=== PATIENT | female | born 1930 | race Caucasian/White ===

== ENCOUNTER → 2017-07-13 | Outpatient (CLI) | payer MEDICARE ==
[~2017-07-13] MED LIST: DOBUTamine 250 MG in DEXTROSE 5% IN WATER 250 ML IV ONE
--- NOTE | 2017-07-13 12:15 | ECHOS ---
STRESS ECHOCARDIOGRAM DATE OF SERVICE: 07/13/2017 INDICATIONS: Left bundle branch block. MEDICATIONS: BASELINE HEART RATE: 97 BASELINE BLOOD PRESSURE: 166/81 MAXIMUM HEART RATE: 126 MAXIMUM BLOOD PRESSURE: 213/92 85% MPHR: 115 100% MPHR: 135 METS: MAXIMUM STAGE REACHED: TOTAL EXERCISE TIME: CLINICAL INFORMATION: An 86-year-old female referred for a dobutamine stress echo. Baseline heart rate 97 beats per minute. Baseline blood pressure 166/81 mmHg. Baseline 12-lead ECG shows sinus rhythm with a left bundle branch block pattern and occasional PVCs. Patient received dobutamine infusion for only up to 20 mcg. Heart rate increased to 126 beats per minute. Peak blood pressure 213/92 mmHg. There was no definite ECG evidence for ischemia. Occasional PVCs were noted. The baseline 2-D echo images showed no wall motion abnormalities, but an overall LV systolic function of 50%. With dobutamine infusion at low dose and at peak dose of 20 mcg, there was no definite wall motion abnormality. There was augmentation of overall LV contractility, but without developing any wall motion abnormalities. At recovery, regional global LV systolic function remained normal. IMPRESSION: 1. No ECG or echocardiographic evidence for ischemia at this low level dobutamine stress test. 2. Baseline hypertension. MMODL / IJN: [id number] /
== END | disposition home or self-care (01) ==
LOC: RADNMMAIN 09:02
PROVIDERS: ATTEND Family Medicine
DX: I10 Essential (primary) hypertension (principal)
CPT/HCPCS: 93017; 93350; J1250